=== PATIENT | male | born 1985 | race Caucasian/White ===

== ENCOUNTER 2024-01-20 22:23 | Emergency (ER) | payer OTHER ==
[~2024-01-20] VITALS: Ht 182.9 cm; Wt 114.0 kg
[2024-01-20 23:06] VITALS: O2SAT 98
[2024-01-20] MEDS: FLUORESCEIN SODIUM 1MG/STRIP RIGHTEYE ONE (23:30)
[2024-01-20] MEDS: TETRACAINE 0.5% OPHTH DROPS 4ML RIGHTEYE ONE (23:30)
[2024-01-21] VITALS: BP 131/69; PULSE 64; RESP 18; TEMP 98
[2024-01-21] MEDS ORDERED: TRIMO RIGHTEYE (00:18)
[2024-01-21] MEDS ORDERED: TOPUD PO (00:19)
== END 2024-01-21 00:20 | disposition home or self-care (01) ==
LOC: ER 22:23
DX: H10.9 Unspecified conjunctivitis (principal); J45.909 Unspecified asthma, uncomplicated
CPT/HCPCS: 99283